=== PATIENT | male | born 1975 | race African-American/Black ===

== ENCOUNTER 2023-01-29 11:32 | Observation (INO) | payer OTHER ==
[2023-01-29] MEDS ORDERED: Aspirin Chewable 81 MG TAB ONE (12:14)
[2023-01-29] MEDS ORDERED: Nitroglycerin 2% Ointment 1 INCH/1 GM Packet ONE (12:15)
[2023-01-29 12:43] LABS: #Eosinphils 0.2 10x3/uL (0.0-0.5); #Monocytes 0.5 10x3/uL (0.0-1.1); #Neutrophils 3.6 10x3/uL (1.5-8.4); %Basophils 0.6 % (0.0-2.0); %Eosinophils 2.4 % (0.0-6.0); %Lymphocytes 40.3 % (18.0-47.0); %Monocytes 6.4 % (0.0-10.0); %Neutrophils 49.9 % (40.0-75.0); Mean Corpuscular HGB CONC 31.8 g/dL (32.0-36.0); Mean Corpuscular Volume 78.7 fl (81.2-95.1); Mean Platelet Volume 10.9 fl (7.4-10.4); Platelet Count 185 10x3/uL (150-450); RBC Distribution Width 14.6 % (11.5-14.5); White Blood Cell (WBC) Count 7.2 10x3/uL (3.5-10.5)
[2023-01-29 12:57] LABS: ALT (SGPT) 16 U/L (8-55); AST (SGOT) 14 U/L (5-34); Albumin 3.8 g/dL (3.5-5.0); Alkaline Phosphatase 126 U/L (40-110); Anion Gap 14 mmol/L (10-20); BUN (Urea Nitrogen) 15 mg/dL (8.9-20.6); Bilirubin, Total 0.3 mg/dL (0.2-1.2); CK (CPK) 217 U/L (30-200); Calc. Creatinine Clearance 0 mL/min (70-130); Calcium 8.6 mg/dL (7.8-10.44); Carbon Dioxide 24 mmol/L (22-29); Chloride 103 mmol/L (98-107); Estimated GFR 107; Globulin 3.3 g/dL (2.4-3.5); Glucose 258 mg/dL (70-105); Lipase 15 U/L (8-78); Potassium 4.1 mmol/L (3.5-5.1); Protein, Total 7.1 g/dL (6.0-8.3); Sodium 137 mmol/L (136-145)
[2023-01-29 15:12] LABS: SARS-CoV-2 NAA Rapid Test Not Detected (NotDetected)
[2023-01-29 17:25] LABS: Troponin I Less than 0.010 ng/mL (< 0.028)
[2023-01-29] MEDS ORDERED: Ondansetron PF 4 MG/2 ML Vial IVP PRN (19:09)
[2023-01-29] MEDS ORDERED: Dextrose 50% Abboject 50 ML SYRINGE SLOW IVP PRN (19:09)
[2023-01-29] MEDS ORDERED: Dextrose 5% in Water 1,000 ML IV PRN (19:09)
[2023-01-29] MEDS ORDERED: Senokot S 8.6-50 MG TAB PO PRN (19:09)
[2023-01-29] MEDS ORDERED: Calcium Carbonate 500 MG ChewTAB PO PRN (19:09)
[2023-01-29] MEDS ORDERED: HumaLOG 300 UNITS/3 ML VIAL SC PRN (19:09)
[2023-01-29] MEDS ORDERED: Guaifenesin DM 100-10/5 ML UDCUP PO PRN (19:09)
[2023-01-29] MEDS ORDERED: Acetaminophen 325 MG TAB PO PRN (19:09)
[2023-01-29] MEDS ORDERED: traMADol HCl 50 MG TAB PO PRN (19:10)
[2023-01-29] MEDS ORDERED: Nitroglycerin 0.4 MG TAB (25 Tab Bottle) SL PRN (19:12)
[2023-01-29 22:15] VITALS: BMI 51.7
[2023-01-29] MEDS ORDERED: Atorvastatin Calcium 40 MG TAB PO SCH (22:30)
[2023-01-29] MEDS ORDERED: CARBAMAZEPINE 100 MG PO SCH (22:30)
[2023-01-30] MEDS ORDERED: Lantus 1000 UNITS/10 ML VIAL SC SCH ×2 (00:45→21:00)
[2023-01-30] MEDS: HumaLOG 300 UNITS/3 ML VIAL SC PRN ×5 (00:55→22:45)
[2023-01-30] MEDS: Mometasone/Formoterol 200/5 60 PUFF INH SCH ×2 (06:30→20:50)
[2023-01-30 06:45] LABS: Anion Gap 12 mmol/L (10-20); BUN (Urea Nitrogen) 14 mg/dL (8.9-20.6); Calc. Creatinine Clearance 193 mL/min (70-130); Calcium 9.4 mg/dL (7.8-10.44); Carbon Dioxide 26 mmol/L (22-29); Chloride 102 mmol/L (98-107); Estimated GFR 88; Glucose 365 mg/dL (70-105); Potassium 4.4 mmol/L (3.5-5.1); Sodium 136 mmol/L (136-145)
[2023-01-30] MEDS: Aspirin 81 mg Enteric Coated Tablet PO SCH (08:59)
[2023-01-30] MEDS: metFORMIN 500 MG TAB PO SCH ×2 (08:59→16:14)
[2023-01-30] MEDS: Furosemide 40 MG TAB PO SCH (09:00)
[2023-01-30] MEDS: Carvedilol 12.5 MG TAB PO SCH ×2 (09:00→16:14)
[2023-01-30] MEDS: Lisinopril 10 MG TAB PO SCH (09:00)
[2023-01-30] MEDS ORDERED: Ketorolac Tromethamine 30 MG/ML VIAL IVP SCH (14:30)
[2023-01-30 14:54] LABS: Hemoglobin A1c 10.7 % (4.0-6.0)
[2023-01-30] MEDS ORDERED: Atorvastatin Calcium 40 MG TAB PO SCH (21:00)
[2023-01-31 05:37] LABS: #Eosinphils 0.2 10x3/uL (0.0-0.5); #Monocytes 0.7 10x3/uL (0.0-1.1); #Neutrophils 3.2 10x3/uL (1.5-8.4); %Basophils 0.4 % (0.0-2.0); %Eosinophils 2.5 % (0.0-6.0); %Lymphocytes 42.7 % (18.0-47.0); %Monocytes 9.3 % (0.0-10.0); %Neutrophils 44.7 % (40.0-75.0); Hemoglobin 12.9 g/dL (13.5-17.5); Mean Corpuscular HGB CONC 31.9 g/dL (32.0-36.0); Mean Corpuscular Hemoglobin 24.9 pg (27.0-33.0); Mean Platelet Volume 10.6 fl (7.4-10.4); Platelet Count 188 10x3/uL (150-450); RBC Distribution Width 14.3 % (11.5-14.5); Red Blood Cell (RBC) Count 5.19 10x6/uL (4.32-5.72); White Blood Cell (WBC) Count 7.1 10x3/uL (3.5-10.5)
[2023-01-31 05:48] LABS: Anion Gap 14 mmol/L (10-20); BUN (Urea Nitrogen) 16 mg/dL (8.9-20.6); Calc. Creatinine Clearance 221 mL/min (70-130); Calcium 9.1 mg/dL (7.8-10.44); Carbon Dioxide 25 mmol/L (22-29); Chloride 102 mmol/L (98-107); Estimated GFR 103; Glucose 261 mg/dL (70-105); Potassium 4.1 mmol/L (3.5-5.1); Sodium 137 mmol/L (136-145)
[2023-01-31] MEDS: HumaLOG 300 UNITS/3 ML VIAL SC PRN ×3 (06:40→17:18)
[2023-01-31] MEDS: Furosemide 40 MG TAB PO SCH (06:41)
[2023-01-31] MEDS: Mometasone/Formoterol 200/5 60 PUFF INH SCH ×2 (07:30→18:56)
[2023-01-31] MEDS: Lisinopril 10 MG TAB PO SCH (09:05)
[2023-01-31] MEDS: Aspirin 81 mg Enteric Coated Tablet PO SCH (09:05)
[2023-01-31] MEDS: Carvedilol 12.5 MG TAB PO SCH ×2 (09:05→17:18)
[2023-01-31] MEDS: metFORMIN 500 MG TAB PO SCH ×2 (09:06→17:18)
[2023-01-31] MEDS ORDERED: Ketorolac Tromethamine 30 MG/ML VIAL IVP SCH (10:45)
[2023-01-31] MEDS ORDERED: Lantus 1000 UNITS/10 ML VIAL SC SCH ×2 (11:30→21:00)
[2023-01-31 17:29] VITALS: BP 133/63; TEMP 98.8
== END 2023-01-31 20:30 ==
LOC: CSHERS 11:32 → EEVIPCON 22:11 → CSHTELE 22:11
PROVIDERS: ADMIT Student in an Organized Health Care Education/Training Program; ATTEND Internal Medicine
DX: R07.9 Chest pain, unspecified (principal); R06.02 Shortness of breath; I10 Essential (primary) hypertension; E78.5 Hyperlipidemia, unspecified; E11.9 Type 2 diabetes mellitus without complications; G40.909 Epilepsy, unspecified, not intractable, without status epilepticus; J45.20 Mild intermittent asthma, uncomplicated; E66.01 Morbid (severe) obesity due to excess calories; I51.7 Cardiomegaly; M79.89 Other specified soft tissue disorders; Z91.010 Allergy to peanuts; Z79.82 Long term (current) use of aspirin; Z79.899 Other long term (current) drug therapy; Z79.4 Long term (current) use of insulin; Z20.822 Contact with and (suspected) exposure to COVID-19; Z68.43 Body mass index [BMI] 50.0-59.9, adult
CPT/HCPCS: 36415; 36416; 71045; 80048; 80053; 82550; 83036; 83690; 83880; 84443; 84484; 85025; 85379; 86140; 93005; 93306; 94760; 94799; 96372; 96374; 96376; G0378; J1650; J1815; J1885; U0002